=== PATIENT | male | born 1955 | race Caucasian/White ===

== ENCOUNTER 2017-12-05 05:54 | Observation (INO) ==
[2017-12-05 06:51] LABS: Basophils # 0.1 10*3/uL (0.0-0.2); Basophils % 0.5 % (0.0-0.8); Eosinophils # 0.1 10*3/uL (0.0-0.87); Eosinophils % 0.7 % (0.00-10.9); Hematocrit 48.4 VOL% (42.0-52.0); Hemoglobin 16.3 GM/DL (14.0-18.0); Immature Granulocytes % 0.4 %; Immature Granulocytes Absolute 0.07 #; Lymphocytes # 3.2 10*3/uL (1.4-4.0); Lymphocytes % 20.4 % (21.2-54.2); Mean Corpuscular HGB Conc 33.7 GM/DL (32-36); Mean Corpuscular Hemoglobin 30 PG (27-34); Mean Platelet Volume 9.6 FL (9.6-12.0); Monocytes % 6.4 % (1.7-12.7); Neutrophils # 11.1 10*3/uL (1.4-7.4); Neutrophils % 71.6 % (38.7-73.9); Platelet Count 289 T/CUMM (130-400); Red Cell Distribution Width 13.2 % (9.3-17.3); White Blood Count 15.6 T/CUMM (4-12)
[2017-12-05 07:00] LABS: Apearance,Urine CLEAR (Clear); Bilirubin,Urine Negative (Negative); Blood, Urine Negative (Negative); Glucose,Urine (UA) Negative (Negative); Ketones,Urine Negative (Negative); Nitrite,Urine Negative (Negative); Protein,Urine Negative; Urine Color Straw (Yellow); Urine Specific Gravity 1.002 (1.001-1.035); Urine Urobilinogen < 2.0 EU/DL (0.2-1.0)
[2017-12-05 07:03] LABS: INR 1.1; PT Patient Result 11.3 SECS
[2017-12-05 07:17] LABS: Barbiturates Screen,Urine Negative (Negative); Benzodiazepines Screen,Urine Negative (Negative); Cannabinoid Screen,Urine Positive (Negative); Opiate Screen,Urine Negative (Negative); Phencyclidine Screen,Urine Negative (Negative)
[2017-12-05 07:23] LABS: Alanine Aminotransferase 38 U/L (16-61); Albumin 3.8 G/DL (3.4-5.0); Alkaline Phosphatase 91 U/L (45-117); Aspartate Amino Transferase 29 U/L (0-37); Blood Urea Nitrogen 11 MG/DL (7-18); Calcium 9.2 MG/DL (8.5-10.1); Glucose 114 MG/DL (74-106); Osmolality,Calculated 272.8 MOS/KG (273-304); Potassium 3.7 MMOL/L (3.5-5.1); Sodium 137 MMOL/L (136-145); Total Protein 7.9 G/DL (6.4-8.3)
[2017-12-05] MEDS ORDERED: ACETAMINOPHEN 325 MG TABLET PO PRN (08:21)
[2017-12-05] MEDS ORDERED: ZALEPLON 5 MG CAPSULE PO PRN (08:21)
[2017-12-05] MEDS ORDERED: traZODone 50 MG TABLET PO PRN (08:21)
[2017-12-05] MEDS ORDERED: ONDANSETRON 4 MG/2 ML VIAL IV PRN (08:21)
[2017-12-05] MEDS ORDERED: PANTOPRAZOLE 40 MG TABLET PO SCH (09:00)
[2017-12-05] MEDS ORDERED: NICOTINE 14 MG/24 HR PATCH TRANSDERM PRN (10:42)
[2017-12-05] MEDS: SODIUM CHLORIDE 0.45% 1,000 ML IV SCH (11:47)
[2017-12-05] MEDS: hydroCHLOROthiazide 12.5 MG CAPSULE PO SCH (11:48)
[2017-12-05] MEDS: IRBESARTAN 150 MG TABLET PO SCH (11:48)
[2017-12-05] MEDS: PANTOPRAZOLE 40 MG TABLET PO SCH (11:48)
[2017-12-05] MEDS: HEPARIN 5,000 UNIT/1 ML VIAL SUBCUT SCH ×2 (11:52→16:41)
[2017-12-05] MEDS: DOCUSATE SODIUM 100 MG CAPSULE PO SCH ×2 (11:52→21:54)
[2017-12-05 12:54] LABS: Troponin I < 0.015 NG/ML (0.00-0.045)
[2017-12-05] MEDS: NYSTATIN 500,000 UNIT/5 ML UDCUP SWISH/SWAL SCH ×2 (16:41→21:54)
[2017-12-05 19:50] LABS: Troponin I < 0.015 NG/ML (0.00-0.045)
[2017-12-06] MEDS: HEPARIN 5,000 UNIT/1 ML VIAL SUBCUT SCH ×2 (00:55→09:50)
[2017-12-06] MEDS: SODIUM CHLORIDE 0.45% 1,000 ML IV SCH ×2 (06:53→07:59)
[2017-12-06 08:16] LABS: Troponin I < 0.015 NG/ML (0.00-0.045)
[2017-12-06 08:41] LABS: Albumin 3.6 G/DL (3.4-5.0); Bilirubin,Total 0.8 MG/DL (0.2-1.0); Calcium 8.9 MG/DL (8.5-10.1); Osmolality,Calculated 271.8 MOS/KG (273-304); Risk Ratio 5.57; Thyroid Stimulating Hormone 0.889 uIU/ml (0.358-3.74); Total Protein 7.8 G/DL (6.4-8.3)
[2017-12-06] MEDS: IRBESARTAN 150 MG TABLET PO SCH (09:49)
[2017-12-06] MEDS: hydroCHLOROthiazide 12.5 MG CAPSULE PO SCH (09:49)
[2017-12-06] MEDS: DOCUSATE SODIUM 100 MG CAPSULE PO SCH (09:49)
[2017-12-06] MEDS: PANTOPRAZOLE 40 MG TABLET PO SCH (09:50)
[2017-12-06] MEDS: NYSTATIN 500,000 UNIT/5 ML UDCUP SWISH/SWAL SCH ×2 (09:50→14:31)
[2017-12-06] MEDS ORDERED: LEVOFLOXACIN 500 MG TABLET PO SCH (12:00)
[2017-12-06 12:07] VITALS: BP 167/94
[2017-12-06 12:07] LABS: Basophils # 0.1 10*3/uL (0.0-0.2); Basophils % 0.6 % (0.0-0.8); Eosinophils # 0.2 10*3/uL (0.0-0.87); Hematocrit 51.9 VOL% (42.0-52.0); Hemoglobin 17.2 GM/DL (14.0-18.0); Immature Granulocytes % 0.4 %; Immature Granulocytes Absolute 0.06 #; Lymphocytes % 30.6 % (21.2-54.2); Mean Corpuscular HGB Conc 33.1 GM/DL (32-36); Mean Corpuscular Hemoglobin 29 PG (27-34); Mean Corpuscular Volume 88.7 FL (87-102); Mean Platelet Volume 10.1 FL (9.6-12.0); Monocytes # 1.2 10*3/uL (0.11-0.8); Monocytes % 7.2 % (1.7-12.7); Neutrophils # 9.8 10*3/uL (1.4-7.4); Neutrophils % 60.2 % (38.7-73.9); Platelet Count 319 T/CUMM (130-400); Red Blood Count 5.85 MC/CUMM (3.8-5.5); Red Cell Distribution Width 13.3 % (9.3-17.3); White Blood Count 16.2 T/CUMM (4-12)
== END 2017-12-06 15:10 | disposition home or self-care (01) ==
LOC: N.EDINP 05:54 → N.ED 05:54 → N.2W 09:49 → N.TELES 10:33
PROVIDERS: ADMIT Internal Medicine; ATTEND Internal Medicine